=== PATIENT | male | born 1985 | race American Indian/Alaskan Native ===

== ENCOUNTER 2018-05-14 18:47 | Emergency (ER) | payer OTHER ==
[2018-05-14 19:05] VITALS: PULSE 70; RESP 18
--- NOTE | 2018-05-14 19:23 | C.PDOC ---
History Of Present Illness 32 y/o male pt presents to the ER by EMS c/o feeling lightheaded, dizziness and nausea. 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 Pt reports when he arrived at [address] the second time, he started feeling the above symptoms and requested help. Pt has no other associated sx or complaints at this time. He denies fever, chills, weakness, headache, chest pain, SOB, vomiting, and abdominal pain. Time Seen by Provider: 05/14/18 19:10 Chief Complaint (Nursing): Medical Clearance History Per: Patient History/Exam Limitations: no limitations Onset/Duration Of Symptoms: Hrs Current Symptoms Are (Timing): Still Present Past Medical History Reviewed: Historical Data, Nursing Documentation, Vital Signs Vital Signs: Last Vital Signs Temp 97.7 F 05/14/18 19:03 Pulse 70 05/14/18 19:03 Resp 18 05/14/18 19:03 BP 156/88 H 05/14/18 19:03 Pulse Ox 98 05/14/18 19:03 Family History: States: No Known Family Hx - Social History Hx Alcohol Use: No Hx Substance Use: No Review Of Systems Constitutional: Negative for: Fever, Chills Cardiovascular: Positive for: Light Headedness. Negative for: Chest Pain Respiratory: Negative for: Shortness of Breath Gastrointestinal: Positive for: Nausea. Negative for: Vomiting, Abdominal Pain Skin: Negative for: Rash Neurological: Positive for: Dizziness. Negative for: Weakness, Numbness, Headache Physical Exam - Physical Exam Appears: Well, Non-toxic, No Acute Distress Skin: Warm, Dry Head: Atraumatic, Normacephalic Eye(s): bilateral: Normal Inspection, PERRL, EOMI Ear(s): Bilateral: Normal Nose: No Discharge Oral Mucosa: Moist Throat: Normal, No Erythema, No Exudate, No Drooling Neck: Normal ROM, Supple Chest: Symmetrical Cardiovascular: Rhythm Regular Respiratory: Normal Breath Sounds, No Stridor, No Wheezing Gastrointestinal/Abdominal: Soft, No Tenderness Back: No CVA Tenderness Extremity: Normal ROM (x4) Neurological/Psych: Oriented x3, Normal Speech, Normal Cognition, Normal Motor, Normal Sensation Gait: Steady ED Course And Treatment O2 Sat by Pulse Oximetry: 98 (RA) Pulse Ox Interpretation: Normal Medical Decision Making Medical Decision Making: Plans: -- pepcid -- Zofran -- PO challenge Start Antivert prn dizziness -- Follow up with PMD in 1-2 days -- patient verbalized understanding and is in agreement with plan -- patient stable for discharge -- Return to ED if symptoms worsen Disposition Counseled Patient/Family Regarding: Diagnosis, Need For Followup, Rx Given - Disposition Referrals: [facility] [Outside] Disposition: HOME/ ROUTINE Disposition Time: 20:48 Condition: IMPROVED Additional Instructions: --Start Antivert prn dizziness -- Follow up with PMD in 1-2 days -- Return to ED if symptoms worsen Prescriptions: Meclizine [Antivert] 12.5 mg PO TID PRN #30 tab PRN Reason: Dizziness Instructions: Vertigo (a Type of Dizziness) (DC), Dizziness, Nonvertigo, (DC) Forms: [employer] (French) - Clinical Impression Clinical Impression: Dizziness, Medical assessment - PA / PRINCIPAL CLERK TYPIST / Resident Statement / has reviewed & agrees with the documentation as recorded. - Scribe Statement The provider has reviewed the documentation as recorded by the Andre Patrick Do All medical record entries made by the Scribrian were at my direction and personally dictated by me. I have reviewed the chart and agree that the record accurately reflects my personal performance of the history, physical exam, medi amadeo decision making, and the department course for this patient. I have also personally directed, reviewed, and agree with the discharge instructions and disposition.
[2018-05-14 20:33] VITALS: BP 157/88; TEMP 98.8
[2018-05-14 20:54] VITALS: O2SAT 98
== END 2018-05-14 20:54 | disposition home or self-care (01) ==
LOC: C.ER 18:47
DX: Z04.89 Encounter for examination and observation for other specified reasons (principal); R42 Dizziness and giddiness